=== PATIENT | male | born 1975 | race Caucasian/White ===

== ENCOUNTER 2023-10-08 09:57 | Outpatient (CLI) | payer OTHER, SELFPAY ==
--- NOTE | ~2023-10-08 | CT_ITS ---
EXAMINATION: CTA brain carotid DATE: 10/08/2023 10:52 INDICATION: Pulsatile tinnitus. TECHNIQUE: Computed tomographic angiography (CTA) of the head was performed without and with 100 mL O mnipaque-350 intravenous contrast. CTA of the neck was performed with intravenous contrast. Automated exposure control and iterative reconstruction technique were employed. The dose-length product was 1 653.60 mGy-cm. Maximum intensity projection and volume rendered 3D-reconstructions were created by yvette higgins technologist on a separate workstation. COMPARISON: None. FINDINGS: HEAD CTA: There is no intracranial hemorrhage, acute infarction, or abnormal intracranial mass lesion . The ventricles are normal in size. The orbits are normal. There is mild mucosal thickening in the p aranasal sinuses. The mastoid air cells are normal. The vertebral arteries are codominant. There is n o significant stenosis of basilar artery or the posterior cerebral arteries. Right posterior communic ating artery is normal. Left posterior communicating artery is not identified. There is moderate sten osis of cavernous left internal carotid artery. There is severe stenosis of cavernous right internal carotid artery. Right A1 anterior cerebral artery segment is small, a normal variant. Anterior commun icating artery is normal. There is no significant stenosis of the middle cerebral arteries. There is no aneurysm. NECK CTA: There are no pathologically enlarged lymph nodes. There is no significant stenosis of the v ertebral arteries. There is plaque in the proximal internal carotid arteries. There is 0% stenosis of the proximal right internal carotid artery relative to normal distal artery lumen diameter (NASCET c riteria). There is 0% stenosis of the proximal left internal carotid artery relative to normal distal artery lumen diameter. There is mild cervical spondylosis. IMPRESSION: 1. Normal brain. 2. Severe stenosis of cavernous right internal carotid artery. Moderate stenosis of cavernous left in ternal carotid artery. 3. 0% stenosis of the proximal internal carotid arteries relative to normal distal artery lumen diame ters (NASCET criteria). Reviewed, dictated and finalized at location A. IMPRESSION: 1. Normal brain. 2. Severe stenosis of cavernous right internal carotid artery. Moderate stenosi s of cavernous left internal carotid artery. 3. 0% stenosis of the proximal internal carotid arteries relative to normal dis juan artery lumen diameters (NASCET criteria).
[2023-10-08 10:19] LABS: Estimated Glomerular Filt Rate > 60
== END 2023-10-08 09:58 ==
LOC: MICIMG 09:59
PROVIDERS: PCP Physician Assistant; Visit Provider Physician Assistant
DX: I65.23 Occlusion and stenosis of bilateral carotid arteries (principal); H93.A9 Pulsatile tinnitus, unspecified ear
CPT/HCPCS: 70496; 70498; Q9967